=== PATIENT | female | born 1985 ===

== ENCOUNTER 2022-05-10 08:55 | Outpatient (CLI) | payer OTHER ==
[~2022-05-10 08:55] MED LIST: SLOW FE160 MG PO
== END 2022-05-10 10:00 | disposition home or self-care (01) ==
LOC: PRENATAL 08:55
PROVIDERS: ATTEND Obstetrics & Gynecology Maternal & Fetal Medicine
DX: O09.519 Supervision of elderly primigravida, unspecified trimester (principal); Z3A.15 15 weeks gestation of pregnancy

== ENCOUNTER 2022-06-13 10:36 | Outpatient (CLI) | payer OTHER | END 2022-06-13 12:40 | disposition home or self-care (01) | LOC: PRENATAL 10:36 | PROVIDERS: ATTEND Obstetrics & Gynecology Maternal & Fetal Medicine | DX: O44.00 Complete placenta previa NOS or without hemorrhage, unspecified trimester (principal) ==

== ENCOUNTER 2022-10-20 15:00 | Inpatient (IN) | payer OTHER ==
[~2022-10-20] VITALS: Ht 162.6 cm; Wt 96.2 kg
[2022-10-29] MEDS ORDERED: PRENATAL TABLE1 EAC3 PO (14:11)
== END 2022-10-31 11:00 | disposition home or self-care (01) | DRG 807 ==
LOC: EDSTATUS 15:00 → OB/GYN 10-29 13:36 → LDR 10-29 13:36 → OB/GYN 10-29 16:55
PROVIDERS: ADMIT Specialist; ATTEND Specialist
PROC: 10E0XZZ Delivery of Products of Conception, External Approach (ICD-10-PCS; principal; 2022-10-29)
PROC: 0UQG7ZZ Repair Vagina, Via Natural or Artificial Opening (ICD-10-PCS; 2022-10-29)
PROC: 4A1HXCZ Monitoring of Products of Conception, Cardiac Rate, External Approach (ICD-10-PCS; 2022-10-29)
DX: O71.4 Obstetric high vaginal laceration alone (principal); Z37.0 Single live birth; Z3A.40 40 weeks gestation of pregnancy; Z20.822 Contact with and (suspected) exposure to COVID-19